=== PATIENT | female | born 1980 | race Caucasian/White ===

== ENCOUNTER → 2016-05-11 | Outpatient (REF) | payer OTHER ==
[~2016-05-11] MED LIST: FERR325T3 PO; MOTR200T44 PO; PERC5TAB6 PO
== END ==
LOC: M SFHCLERA 10:51
PROVIDERS: ATTEND Physician Assistant
DX: R73.01 Impaired fasting glucose (principal); Z13.220 Encounter for screening for lipoid disorders; E55.9 Vitamin D deficiency, unspecified
CPT/HCPCS: 80061; 82306; 83036; G0123